=== PATIENT | male | born 1985 | race Caucasian/White ===

== ENCOUNTER → 2017-05-30 | Outpatient (CLI) | payer OTHER ==
--- NOTE | 2017-05-30 16:33 | RADRPT ---
PROCEDURE: XR Right hip and pelvis. CLINICAL INDICATION: Right hip pain. Pelvic pain. Postop. TECHNIQUE: Two views. Frontal pelvis and lateral right hip. COMPARISON: No prior studies are available for comparison. FINDINGS: There is no fracture or dislocation. The soft tissues are normal. There is a right hip total arthroplasty which appears satisfactory. The left hip is grossly normal. There is no lytic or blastic lesion. Multiple very small metal foreign bodies are present in the soft tissues of the right hip. Surgical clips are present in the pelvis and then left inguinal region. IMPRESSION: 1. Satisfactory postoperative appearance of the right hip. 2. Grossly normal appearance of the left hip. 3. Metal foreign bodies as described above. RPTAT: QQ .Gerry Sim MD, MD Date Time Electronically viewed and signed by .Gerry Sim MD, MD on 05/30/2017 16:33 .R/
--- NOTE | 2017-05-31 03:33 | HKNOTE ---
DATE OF SERVICE: 05/30/2017 CHIEF COMPLAINT: Right hip pain. HISTORY OF PRESENT ILLNESS: This is a 32-year-old male who is status post right total hip arthropla sty by Dr. 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 He is complaining of pain in the right groin for the last few months. He denies any histo ry of trauma. He states that the pain is intermittent. There is no radiation. He denies any back pain. He denies any weakness, numbness or tingling. He has no other complaints. GAIT: Nonantalgic gait, no use of assistive device. RIGHT HIP: Previous posterolateral incision has healed, 0 to 90 degrees range of motion, 20 degrees internal rotation, 40 degrees external rotation. MOTOR STRENGTH: 5/5 tibialis anterior, gastroc soleus, hamstrings, quadriceps. IMAGING: X-rays, AP pelvis/left hip 2-view x-rays: X-rays taken in the office demonstrate that the previous implant is in acceptable alignment. There are no fractures, dislocations. No loosening i s seen. IMPRESSION: A 22-year-old male with right hip pain status post right total hip arthroplasty. PLAN: We will request authorization for physical therapy. He can take ibuprofen as needed. If he continues to have pain following his physical therapy, he will call to make an appointment for jenniffer hollingsworth. Dictated By: ABRAHAM SÁNCHEZ/VANITA Conf#: [id number] DID#: [id number]
== END | disposition home or self-care (01) ==
LOC: HKI 14:21
PROVIDERS: ATTEND Orthopaedic Surgery Adult Reconstructive Orthopaedic Surgery
DX: T84.84XA Pain due to internal orthopedic prosthetic devices, implants and grafts, initial encounter (principal); Y83.8 Other surgical procedures as the cause of abnormal reaction of the patient, or of later complication, without mention of misadventure at the time of the procedure
CPT/HCPCS: 73502; Z7500; G0463